=== PATIENT | female | born 1955 | race Caucasian/White ===

== ENCOUNTER 2016-06-19 06:39 | Day surgery (SDC) | payer BC, SELFPAY ==
--- NOTE | ~2016-06-19 | OP ---
Record Of Operation [facility] [address] [place]. [address] NAME: GIULIANO MUÑIZ : 53 STATUS : REG [facility]#: [id number] AGE: 61 ADM/REG DATE : 06/19/16 MR#: [id number] REPORT SERV DATE: 06/19/16 DICTATED BY: ALEX GOLDSMITH DATE: 06/19/16 REPORT STATUS : Draft TRANSCRIBED BY: JACY DATE: 06/19/16 DATE OF PROCEDURE: 06/19/2016 PREOPERATIVE DIAGNOSIS: Left breast cancer. POSTOPERATIVE DIAGNOSIS: Left breast cancer. PROCEDURES: Placement of a right internal jugular venous port, intraoperative fluoroscopy with interpretation, and intraoperative ultrasound guidance for vein mapping. INDICATION FOR THE PROCEDURE: Ms Muñiz is a 61-year-old chronic smoker with emphysema. She was diagnosed with a left breast cancer in 1997, treated with breast preservation. She unfortunately has had a new diagnosis of a left breast cancer recently at an outside facility. She has a large hypoechoic mass at the 2 o'clock position. Periareolar region on the left side. It takes up a large volume of her fairly small volume breast tissue. It is fairly aggressive grade 2 with perineural invasion, and she has met with Dr. Petty Ash, and decision has been made for neoadjuvant chemotherapy. He thinks the chemotherapy neoadjuvantly will help with margins status at surgical time. The plan is for placement of a right chest wall port using internal jugular vein access. OPERATIVE FINDINGS: After appropriate consent was on the chart, the patient was taken to the operating room in supine position. She was placed under monitored anesthesia without complication. Her arms were tucked. A shoulder roll was placed. Ultrasound was utilized to visualize the right internal jugular vein, which was generous in size in the normal anatomic position and patent. The patient's bilateral chest wall and neck were prepped and draped in sterile fashion. The draped ultrasound probe was utilized to again visualize the right internal jugular vein. 1% lidocaine was instilled into the soft tissues overlying the vein. The vein was accessed with a single pass of the Seldinger needle. Nonpulsatile venous appearing blood was noted in the syringe. The syringe was removed and the wire passed with ease. Fluoroscopy noted the wire to be in good position in the vena cava. The needle was removed. The wire was secured to the drapes for later use. The local anesthetic was instilled into the area for the port pocket, and the subcutaneous tunnel. An incision was made with a #15 blade, and sharp dissection was carried down to the level of the soft tissues. The port pocket was created with Bovie cauterization. Stay sutures were placed at the 3 o'clock and 9 o'clock position with Prolene 3-0. An 11 blade was utilized to extend the sandra in the neck slightly. The tunneling device was utilized to create a new tunnel from the port pocket to the vein access site. The catheter was pulled through this tunnel without issue. The dilator with tear-away sheath were then placed over the wire with constant movement of the wire. The vein was dilated. No resistance was met during this portion of the case. The wire and dilator were removed leaving the tear-away sheath in the vein. The catheter was placed into the vein without problem, and the sheath was torn away leaving the catheter in the vein. Fluoroscopy was utilized to ensure that the tip was at the atriocaval junction. The catheter was then clipped for length and attached to the port with the attachment device. The port was noted to aspirate and flush with ease. It was packed with heparinized saline. The port was placed into the port pocket and secured with the two stay sutures. The port pocket was irrigated with saline. Hemostasis was achieved Record Of Operation [address] [place]. [address] NAME: GIULIANO MUÑIZ : 53 STATUS : REG [facility] PAT#: [id number] AGE: 61 ADM/REG DATE : 06/19/16 MR#: [id number] REPORT SERV DATE: 06/19/16 DICTATED BY: ALEX GOLDSMITH DATE: 06/19/16 REPORT STATUS : Draft TRANSCRIBED BY: MODL DATE: 06/19/16 and then closed in two layers of Monocryl. The skin was cleansed and dried. Mastisol and Steri-Strips were applied. Telfa and Tegaderm were overlaid. The patient was awoken from anesthesia without complication, taken to the PACU in stable condition for recovery. All counts were correct at the end of the case. ESTIMATED BLOOD LOSS: 10 mL. COMPLICATIONS: None. SPECIMENS: None. We will get a chest x-ray in recovery to ensure good positioning of the catheter. No pneumothorax or hemothorax. BW/MODL Alex Goldsmith MD / [id number] CC: MD SHYLA Beauchamp M.D. [facility] Petty Ash M.D.
[~2016-06-19 06:39] MED LIST: B121000P IM; CYTO25 PO; EFFEX37.5 PO; IBU-200200 MG PO; PHENTERMINE37.5 M1 PO; SPIRO50 PO
[2016-06-19 07:32] LABS: HEMATOCRIT 43.8 % (36.0-48.0); HEMOGLOBIN 14.7 g/dL (12.0-16.0)
[2016-06-19 07:44] LABS: ALBUMIN 3.5 G/DL (3.5-5.0); ALKALINE PHOSPHATASE 82 U/L (45-117); BUN (BLOOD UREA NITROGEN) 14 MG/DL (6-23); CALCIUM, SERUM 9.1 MG/DL (8.5-10.4); CHLORIDE, SERUM 110 MMOL/L (96-112); CO2 (CARBON DIOXIDE) 26 MMOL/L (24-34); CREATININE 0.76 MG/DL (0.55-1.02); GFR AFRICAN AMERICAN 97 ML/MIN (>=60); GFR NON AFRICAN AMERICAN 84 ML/MIN (>=60); GLOBULIN 3.4 G/DL (2.5-4.1); GLUCOSE, SERUM 81 MG/DL (60-99); POTASSIUM, SERUM 4.2 MMOL/L (3.5-5.3); SGOT(AST) 12 U/L (5-40); SGPT(ALT) 20 U/L (5-65); SODIUM, SERUM 145 MMOL/L (135-148); TOTAL BILIRUBIN 0.2 MG/DL (0-1.2); TOTAL PROTEIN 6.9 G/DL (6.0-8.5)
[2016-09-24] MEDS ORDERED: NEUR100 PO (11:21)
[2016-09-24] MEDS ORDERED: CELEXA20 PO (11:21)
[2016-09-24] MEDS ORDERED: CLARIT10 PO (11:24)
== END 2016-06-19 13:09 | disposition home or self-care (01) ==
LOC: SDC 06:39
PROVIDERS: Surgery Surgical Oncology
PROC: 05HM33Z Insertion of Infusion Device into Right Internal Jugular Vein, Percutaneous Approach (ICD-10-PCS; principal; 2016-06-19 07:45)
DX: C50.412 Malignant neoplasm of upper-outer quadrant of left female breast (principal); E03.9 Hypothyroidism, unspecified; F17.210 Nicotine dependence, cigarettes, uncomplicated; Z88.0 Allergy status to penicillin; Z88.2 Allergy status to sulfonamides; Z88.5 Allergy status to narcotic agent; Z88.8 Allergy status to other drugs, medicaments and biological substances; Z79.899 Other long term (current) drug therapy
CPT/HCPCS: 71010; 76000; 80053; 85014; 85018; 93005; C1751; J0690; J2250; J2405; J3010